=== PATIENT | female | born 1965 | race Caucasian/White ===

== ENCOUNTER → 2017-11-05 | Outpatient (CLI) | payer MEDICARE, MEDICAID ==
[~2017-11-05] MED LIST: ACETAMINOPHEN-1 EAC1 PO; AVELOX 400 MG400 MG PO; DIABETA; EFFEXOR XR75 MG PO; GLUCOPHAGE XR500 MG PO; GLYBURIDE 2.52.5 MG PO; HUMALOG100 UNIT/1 SUBQ; HYDROCHLOROTH12.5 MG; IBUPROFEN 800800 M1 PO; LANTUS IM; LASIX 20 MG TAB20 MG PO; LIORESAL 10 MG10 MG PO; MINOCYCLINE HC100 M2 PO; NAPROSYN500 M1 PO; PENICILLIN VK500 MG PO; SINGULAIR; SINGULAIR 10 MG10 M1 PO; SPIRONOLACTONE25 M1 PO; ZESTRIL5 MG PO; ZOLOFT100 MG
== END ==
LOC: M.ULTRA 13:22
DX: M79.662 Pain in left lower leg (principal); M79.89 Other specified soft tissue disorders

== ENCOUNTER → 2018-12-17 | Outpatient (CLI) | payer MEDICARE, MEDICAID ==
[2018-12-17 12:12] LABS: ABSOLUTE LYMPHOCYTES 0.9 thou/uL (0.8-5.3); ABSOLUTE MONOCYTES 0.3 thou/uL (0.0-1.2); ABSOLUTE NEUTROPHILS 4.4 thou/uL (1.6-8.1); BASOPHILS 0.1 %; HEMATOCRIT 39.3 % (37.0-47.0); HEMOGLOBIN 12.4 gm/dL (12.0-15.0); LYMPHOCYTES 15.9 %; MCH 28.2 pg (26.0-34.0); MCHC 31.6 g/dL (28.0-37.0); MCV 89.3 fL (80.0-100.0); MONOCYTES 5.8 %; MPV 7.8 fl. (7.2-11.1); NUCLEATED RBCS 0 /100WBC; PLATELET COUNT* 190 thou/uL (150-400); POLYS 78.2 %; RDW-CV 14.9 % (10.5-14.5); WBC 5.6 thou/uL (4.0-11.0)
[2018-12-17 12:18] LABS: URINE BILIRUBIN NEGATIVE (Negative); URINE BLOOD NEGATIVE (Negative); URINE CLARITY CLEAR; URINE COLOR YELLOW; URINE GLUCOSE-RANDOM NEGATIVE (Negative); URINE KETONES NEGATIVE (Negative); URINE LEUKOCYTES-REFLEX NEGATIVE (Negative); URINE NITRITE-REFLEX NEGATIVE (Negative); URINE PROTEIN NEGATIVE (Negative); URINE UROBILINOGEN 0.2 E.U./dl (0.2-1.0)
[2018-12-17 12:23] LABS: CALCIUM 8.7 mg/dL (8.5-10.1); CREATININE 1.5 mg/dL (0.6-1.3); MAGNESIUM 1.9 mg/dL (1.8-2.4); PHOSPHORUS* 3.7 mg/dL (2.5-4.9); POTASSIUM 4.3 mmol/L (3.5-5.1)
[2018-12-17 12:44] LABS: CALCIUM 8.4 mg/dL (8.5-10.1); CREATININE 1.5 mg/dL (0.6-1.3); PHOSPHORUS* 3.8 mg/dL (2.5-4.9)
== END ==
LOC: M.ULTRA 11:16
PROVIDERS: Internal Medicine
DX: E11.22 Type 2 diabetes mellitus with diabetic chronic kidney disease (principal); N18.3 Chronic kidney disease, stage 3 (moderate); N17.9 Acute kidney failure, unspecified; J45.909 Unspecified asthma, uncomplicated; Z90.5 Acquired absence of kidney

== ENCOUNTER 2018-12-21 15:05 | Inpatient (IN) | payer MEDICARE, MEDICAID ==
[~2018-12-21] VITALS: Ht 160 cm; Wt 225.4 kg
--- NOTE | ~2018-12-21 | CON ---
[address] [address] CONSULTATION Name: VASQUEZ MAGANA Room: [address] IN .R.#: [id number] Admission: 12/21/18 Attend Phys: Vinicius House Discharge: Date of : 65 Report #: [id number] THIS REPORT FOR: //name// CC: Gary Salas DATE OF SERVICE: 12/22/2018 INFECTIOUS DISEASE CONSULTATION REASON FOR CONSULTATION: I was asked to evaluate concerning respiratory failure and abdominal wall cellulitis. HISTORY OF PRESENT ILLNESS: The patient is a 53-year-old morbidly obese woman with COPD, chronic tracheostomy for obstructive sleep apnea, who presents on 12/21/2018 with a 1-week history of progressive shortness of breath along with 40-pound weight gain. She has a metal tracheostomy and receives oxygen at home. She has had chronic cough with no increased tracheal secretions. Denies any fever, chills or sweats. Has had recurring episodes of abdominal wall cellulitis. She noticed that for last several days, there has been increased pain and warmth involving her abdominal pannus. Denies any fever, chills or sweats. No nausea, vomiting or diarrhea. There has been no chest pain. She has had no palpitations. Main complaint now is difficulty catching her breath. She has improved after being on high flow oxygen here in the Intensive Care Unit. The patient is morbidly obese and she has had difficulty trying to lose weight. No overall change in diet or fluids. She is a diabetic and she has been taking her insulin. She has been on diuretics in the past. REVIEW OF SYSTEMS: Full 10-point review of systems was negative other than what is described above. PAST MEDICAL HISTORY: Tracheostomy for obstructive sleep apnea, narcolepsy in the distant past. Diabetes, asthma, COPD, left nephrectomy, section, partial hysterectomy with right oophorectomy, morbid obesity, recurrent abdominal wall cellulitis and venous stasis disease of her lower abdominal pannus. ALLERGIES: None known. MEDICATIONS: As noted on her AUG, having been started on Zosyn, vancomycin, ceftriaxone, levofloxacin, Zyvox. FAMILY HISTORY: [place] [address] CONSULTATION Name: VASQUEZ MAGANA Room: [address]#: [id number] Admission: 12/21/18 Attend Phys: Vinicius House Discharge: Date of : 65 Report #: [id number] SOCIAL HISTORY: Nonsmoker. No significant alcohol intake. She lives with her daughter and grandchildren. No one has had recent respiratory tract infection symptoms. PHYSICAL EXAMINATION: VITAL SIGNS: She is afebrile and hemodynamically stable. GENERAL: She was alert and cooperative, on high flow oxygen, trach collar. HEENT: Eyes, without scleral icterus. Mouth without mucositis. NECK: Supple with tracheostomy. No surrounding erythema or drainage. LUNGS: Decreased breath sounds bilaterally with no consolidation. HEART: Regular without appreciable murmur, gallop or rub. ABDOMEN: Tender to her abdominal pannus. No appreciable masses identified. She was morbidly obese, large abdominal pannus. She had venous stasis disease involving her abdominal pannus. There was cellulitis, mostly on the lower left abdominal pannus. Moderate tenderness to this region. She has small eschar to the upper mid right abdomen. No palpable adenopathy. GENITAL AND RECTAL: Not performed. EXTREMITIES: Without clubbing, cyanosis or edema. Cranial nerves intact. Strength in upper and lower extremities seemed normal. Sensation in upper and lower extremities is normal. PSYCHIATRIC: Mood was normal. LABORATORY AND DIAGNOSTIC DATA: Ultrasound of the lower extremities negative for DVT. Sodium 140, potassium 4.2, bicarb 34, creatinine 1.6. Troponin 0. Lactate 0.9. Liver function tests normal. Blood glucose in the 200-300 range. Hemoglobin 12.6, white count 5.8, platelet count 196,000. Differential unremarkable. Chest x-ray with cardiomegaly and perihilar opacities most consistent with congestive changes. Blood cultures are negative. Urinalysis done on 12/17/2018 was negative. IMPRESSION: A 53-year-old morbidly obese woman with obstructive sleep apnea, chronic obstructive pulmonary disease and asthma, presents with: 1. Respiratory failure, combination of exacerbation of chronic obstructive pulmonary disease and congestive heart failure. 2. Abdominal wall cellulitis and venous stasis disease. 3. Chronic obstructive pulmonary disease. 4. Morbid obesity. 5. Obstructive sleep apnea. 6. Congestive heart failure. 7. Solitary kidney. 8. Diabetes. RECOMMENDATION: We will continue IV antibiotic therapy with azithromycin and [address] [place] [address] CONSULTATION Name: VASQUEZ MAGANA Room: [address] IN M.R.#: [id number] Admission: 12/21/18 Attend Phys: Vinicius House Discharge: Date of : 65 Report #: [id number] ceftriaxone. Culture blood and sputum. Continue with diuresis, pulmonary support and ICU care. Would again encourage weight loss and diet. By: 1622 [id number] Talbert MD /nt
[2018-12-21 15:12] VITALS: BP 138/55
[2018-12-21] MEDS ORDERED: OSTERA TABLET1 EAC1 PO (15:21)
[2018-12-21 15:32] LABS: ABSOLUTE LYMPHOCYTES 0.9 thou/uL (0.8-5.3); ABSOLUTE MONOCYTES 0.4 thou/uL (0.0-1.2); ABSOLUTE NEUTROPHILS 4.5 thou/uL (1.6-8.1); BASOPHILS 0.3 %; HEMATOCRIT 39.8 % (37.0-47.0); HEMOGLOBIN 12.6 gm/dL (12.0-15.0); LYMPHOCYTES 16.3 %; MCH 27.7 pg (26.0-34.0); MCHC 31.5 g/dL (28.0-37.0); MCV 87.9 fL (80.0-100.0); MONOCYTES 6.6 %; NUCLEATED RBCS 0 /100WBC; PLATELET COUNT* 196 thou/uL (150-400); POLYS 76.8 %; RBC 4.53 mil/uL (4.20-5.00); RDW-CV 15.4 % (10.5-14.5); WBC 5.8 thou/uL (4.0-11.0)
[2018-12-21 15:42] LABS: ANION GAP 5 mmol/L (7-16); BUN 20 mg/dL (7-18); CALCIUM 8.4 mg/dL (8.5-10.1); CHLORIDE 102 mmol/L (98-107); CO2 34 mmol/L (21-32); CREATININE 1.6 mg/dL (0.6-1.3); GLUCOSE 224 mg/dL (70-99); POTASSIUM 3.8 mmol/L (3.5-5.1); SODIUM 141 mmol/L (136-145)
[2018-12-21 15:43] LABS: APTT 27.5 Seconds (25.0-31.3); INR 1.1; PROTIME 11.3 Seconds (9.20-11.50)
[2018-12-21 15:49] LABS: PCO2 47.1 mmHg (35.0-45.0); PO2 60.4 mmHg (75.0-100.0); pH 7.413 (7.340-7.450)
[2018-12-21 15:53] LABS: ALKALINE PHOSPHATASE 81 U/L (46-116); NT-PRO BRAIN NAT PEPTIDE 2017 pg/mL (<300); SGOT 18 U/L (15-37); SGPT 20 U/L (30-65); TOTAL BILIRUBIN 0.6 mg/dL (<0.1-1.0); TOTAL PROTEIN 7.7 g/dL (6.4-8.2); TROPONIN-I LEVEL <0.06 ng/mL (<0.06)
--- NOTE | 2018-12-21 17:37 | NUR ---
PT WAS GIVEN DINNER TRAY
--- NOTE | 2018-12-21 19:02 | NUR ---
PUREWICK CATHETER WAS PLACED AT 1800
--- NOTE | 2018-12-21 19:33 | NUR ---
LI CATHETER PLACED AT [address] ACHARYA VERBAL ORDER
--- NOTE | 2018-12-21 20:45 | NUR ---
PT TRANSERING TO ICU BED 3
[2018-12-21 21:06] VITALS: BP 135/60
[2018-12-21 21:07] VITALS: BP 132/64
[2018-12-22] VITALS (19 sets, daily range): BP systolic 99–132; BP diastolic 41–65
--- NOTE | 2018-12-22 01:26 | NUR ---
FULL CODE STATUS ON ER ORDER, PATIENT REPORTS SHE IS DNR. PROVIDER INFORMED ABOUT THIS VIA YOUCALLMD. NO ORDERS RECEIVED AT THIS TIME. HOUSESUP INFORMED THAT PATIENT IS DNR BUT HAS A FULL CODE STATUS. STATES UNTIL WE GET A PHYSICIAN'S ORDER, WE WILL RESPECT PATIENT'S WISHES.
--- NOTE | 2018-12-22 06:04 | NUR ---
PATIENT DESATTING THROUGH THE NIGHT. WENT FROM BEING ON 10L TRACH SHIELD TO 55.0 L HIGHFLOW WITH 100% FIO2 AT THIS TIME. SPO2 STAYING BETWEEN 86-92%, HIGHEST AT 95% BRIEFLY. COUGHS FREQUENTLY, MINIMAL AMOUNT OF THICK, WHITE MUCUS SUCTIONED. THICK, BROWN MUCUS PLUG FROM TRACH THIS MORNING. SINUS BRADYCARDIC ON THE MONITOR, VITALS STABLE OTHERWISE. PATIENT DENIES PAIN. REQUESTS NOT TO BE TURNED USING THE BED, REPORTS SHE CAN TURN HERSELF. 600CC UOP VIA CATHETER. CALL LIGHT WITHIN REACH.
[2018-12-22 11:32] LABS: CALCIUM 8.1 mg/dL (8.5-10.1); CREATININE 1.6 mg/dL (0.6-1.3); MAGNESIUM 2.2 mg/dL (1.8-2.4); POTASSIUM 4.2 mmol/L (3.5-5.1)
--- NOTE | 2018-12-22 18:50 | NUR ---
I ASSUMED CARE OF THE PATIENT AT 0700. SHE IS ALERT AND ORIENTED X4 AND IS UP WITH ASSISTANCE. SHE IS IN A BARIATRIC BED. IT IS IN THE LOW LOCKED POSITION AND CALL LIGHT IS IN REACH. SHE IS ON A HEPARIN DRIP. HOURLY ROUNDING IS COMPLETED AND PATIENT NEEDS ARE MET. PAIN IS DENIED. ACCU CHECKS ARE COMPLETED AND INSULIN HAS BEEN GIVEN. LI IS IN PLACE. PATIENT HAD A COMPLETED BATH TODAY WITH ASSISTANCE. SHE WAS SEEN BY HIMS, PULMONOLOGY, CARDIOLOGY WAS CONSULTED, AND ID WAS HERE. FAMILY IS AT THE BEDSIDE. PATIENT SEEMS TO NOW AGREE TO HAVE HER TRACH REPLACED IF NEEDED AND WOULD REQUEST THAT IT BE DONE AFTER THIS ADMISSION IS COMPLETE A SCHEDULED PROCEDURE. SHE UNDERSTANDS THAT WE DO NOT HAVE ENT ON STAFF. D.DIMER WAS ELEVATED, PULMONOLOGY WAS CONTACTED AND NEW ORDERS WERE RECEIVED. RT IS WORKING ON TITRATING HER FI02. SHE IS PROGRESSING TOWARD HER GOALS. WILL CONTINUE TO MONITOR.
[2018-12-23] VITALS (24 sets, daily range): BP systolic 103–147; BP diastolic 34–68
--- NOTE | 2018-12-23 04:47 | NUR ---
PT. PROGRESSING TOWARDS GOALS. HAS REMAINED ALERT AND ORIENTED, NO C/O PAIN. SINUS BRADYCARDIA. LINENS CHANGED. PT. PUT ON BEDPAN THIS SHIFT, NO BM. PT. IS ABLE TO HELP ASSIST WITH TURNS AND ABLE TO SHIFT OWN WEIGHT. BP'S WITHIN NORMAL LIMITS. HEPARIN GTT REMAINS INFUSING, PTT TO BE DRAWN AT 0530. PTT. 30.4 AT 2100 CHECK, BOLUS GIVEN AND GTT INCREASED PER HEPARIN PROTOCOL. TRACH SHIELD REMAINS IN PLACE WITH 100% FIO2 AND 50L. CALL LIGHT REMAINS IN PLACE, WILL CONTINUE TO MONITOR.
[2018-12-23 05:34] LABS: HEMATOCRIT 39.9 % (37.0-47.0); HEMOGLOBIN 12.8 gm/dL (12.0-15.0); MCH 27.8 pg (26.0-34.0); MCHC 31.9 g/dL (28.0-37.0); MCV 87.2 fL (80.0-100.0); MPV 9.7 fl. (7.2-11.1); NUCLEATED RBCS 0 /100WBC; PLATELET COUNT* 192 thou/uL (150-400); RBC 4.58 mil/uL (4.20-5.00); RDW-CV 15.6 % (10.5-14.5); WBC 10.1 thou/uL (4.0-11.0)
[2018-12-23 05:51] LABS: ALBUMIN 2.8 g/dL (3.4-5.0); CALCIUM 8.7 mg/dL (8.5-10.1); CREATININE 1.7 mg/dL (0.6-1.3); MAGNESIUM 2.2 mg/dL (1.8-2.4); PHOSPHORUS* 4.9 mg/dL (2.5-4.9); POTASSIUM 3.9 mmol/L (3.5-5.1); TOTAL BILIRUBIN 0.5 mg/dL (<0.1-1.0); TOTAL PROTEIN 7.3 g/dL (6.4-8.2)
[2018-12-23 07:20] LABS: ABSOLUTE LYMPHOCYTES 0.7 thou/uL (0.8-5.3); ABSOLUTE MONOCYTES 0.1 thou/uL (0.0-1.2); ABSOLUTE NEUTROPHILS 9.3 thou/uL (1.6-8.1); PLATELET ESTIMATE ADEQUATE
--- NOTE | 2018-12-23 08:21 | CON ---
[facility] [address] [place] [address] CONSULTATION Name: VASQUEZ MAGANA Room: [address] IN M.R.#: [id number] Admission: 12/21/18 Attend Phys: Vinicius House Discharge: Date of : 65 Report #: [id number] THIS REPORT FOR: //name// CC: Gary Salas DATE OF SERVICE: 12/22/2018 REQUESTING PHYSICIAN: Consult has been requested by Dr. Salas. INDICATION FOR CONSULTATION: Acute on chronic hypoxemic/hypercarbic respiratory failure. HISTORY OF PRESENT ILLNESS: This is a 53-year-old female with past medical history that includes a history of extreme obesity. Her body mass index is elevated to 89. The patient does have a tracheostomy in place, long-term. This does not have a cuff. The patient reports that she uses 4 liters oxygen by a trach shield at night and keeps her tracheostomy uncovered during the day. The patient has now presented with a history of increasing shortness of breath. The patient says this has been there for less than a week. In fact, she has only felt it more significantly for the last couple of days. The patient does report a cough. She says at times she brought up small amounts of blood. Her sputum, however, has been clear. She does not have chest pain. She does not have upper respiratory complaints. She does have mild swelling of lower extremities, which has not changed recently. There is no pain in her calf. There is erythema of her lower abdomen present. The patient says that she has had cellulitis in this region in the past as well. The patient is requiring an incredibly high amount of oxygen. In addition to her heated high flow at 60 liters, she is being administered 15 liters via a supplemental device. In fact, she is receiving 85 liters of flow which is an extremely high flow rate. The patient still is wide awake. I am told that she was sitting up and eating breakfast with this incredibly high amount of oxygen in place. The patient answers to the negative for 12 questions for review of systems except as mentioned above. Her ability to answer questions, however, is limited due her to having a tracheostomy and being on high FiO2. PAST MEDICAL HISTORY: Extreme obesity, body mass index elevated to 89, obstructive sleep apnea. She has a tracheostomy long-term with oxygen while asleep long-term. She has not been on oxygen during the daytime. There is mention of narcolepsy on the chart; however, I am not certain if she in fact has narcolepsy because some of the symptoms of obstructive sleep apnea can resemble narcolepsy as well. She has a history of MRSA colonization with MRSA infection in 2008. Bronchial asthma is mentioned on the record; however, the patient is not certain if she actually has asthma. Diabetes, on a large amount of insulin. Partial hysterectomy, right oophorectomy, in the [place] [address] CONSULTATION Name: VASQUEZ MAGANA Room: [address] IN [facility].#: [id number] Admission: 12/21/18 Attend Phys: Vinicius House Discharge: Date of : 65 Report #: [id number] nephrectomy as well. The patient's baseline creatinine is in fact elevated to around 1.5 in 2017, but was also 1.2 back then, so I am not aware of her baseline creatinine. The patient's last available echocardiogram shows a left ventricular ejection fraction of 55% to 60% without elevation in right heart pressures. This may, however, have been limited study due to her body habitus. SOCIAL HISTORY: Lifetime nonsmoker. No known history of ethanol abuse or drug abuse. CURRENT MEDICATIONS: List in [place], reviewed. HOME MEDICATIONS: List in [place], reviewed. FAMILY HISTORY: Diabetes. PHYSICAL EXAMINATION: GENERAL: She is remarkably comfortable for the amount of oxygen she is on. The patient is on incredible 85 liters total with 100% FiO2 partially being administered using a heated high flow device and partially being administered by supplemental device at 15 liters. The heated high flow device was at 60 liters. VITAL SIGNS: She has a pulse of around 50 and blood pressure of 129/60. She is saturating 93% to 95%. She is mostly around 93. She is afebrile with a temperature of 36.9. She does have a body mass index of 89. HEENT: Head is normocephalic, atraumatic. Pupils are equal and reactive. She has a small mouth opening and Mallampati 4 airway. There is a trach in place, cuffless. NECK: Does not show raised JVP, asymmetry, mass or lymph nodes. CHEST: Symmetrical expansion on inspection and palpation. On auscultation, breath sounds are bilaterally equal, but decreased. I do not hear any added sounds. HEART: Regular with no murmurs. Bradycardia is noted. ABDOMEN: Soft. There is erythema of the lower part of the skin of the abdomen. EXTREMITIES: Lower extremities show trace edema only. Skin is dry and intact. There is no calf tenderness. NEUROLOGICAL: Moves all extremities bilaterally equally and spontaneously with no focal deficit identified. LABORATORY DATA: The patient's chest x-ray is reviewed and compared with the patient's previous chest x-rays. There are vague radiopaque densities bilaterally noted. I feel there is a significant component of these chronic changes, it is possible that there are some infiltrates present. There may be mild increase in pulmonary vascular congestion as well; however, I do not see any marked increase in pulmonary vascular congestion or large infiltrates. The patient's CBC as well as chemistries, coagulation studies are in [facility] [place] [address] CONSULTATION Name: VASQUEZ MAGANA Room: [address] IN [facility].#: [id number] Admission: 12/21/18 Attend Phys: Vinicius House Discharge: Date of : 65 Report #: [id number] ASSESSMENT AND PLAN: 1. [id number] hypoxemic/hypercarbic respiratory failure. The patient currently is comfortable, but she is on an incredible amount of oxygen at around 80 liters, out of which 60 liters are used with a heated high flow device. I certainly would have preferred a cuff trach; however, at this time changing her tracheostomy out will have significant risks. Also, I considered as to whether we should transfer her to a facility with ENT coverage; however, there will be considerable risks in transport as well. Therefore, I decided to hold off. In case the patient desaturates further; however, there may be no choice but to switch her tracheostomy over to a cuffed trach and then connect her to a BiPAP or ventilator. I discussed this with the patient. She had previously stated that she may not want such measures, but she is now telling me that she would. Note that she is considerably hypoxemic. While there may be some mild increase in pulmonary vascular congestion and some infiltrates on the patient's chest x-ray, I feel that this is significantly out of proportion and therefore the possibility of thromboembolism does need to be considered. 2. Obstructive sleep apnea with obesity hypoventilation syndrome. See discussion as above. This is underlying etiology of her respiratory failure. 3. Pulmonary infiltrates. I would cover her very broadly at this time. She does have elevation in creatinine. She also does have only one kidney and she has a history of MRSA colonization. Therefore, for now, I decided to discontinue her vancomycin. We will also hold her venlafaxine and order Zyvox. I also broadened the antibiotic coverage by switching ceftriaxone to Zosyn and ordered Levaquin, but as discussed above, it is possible that the patient's hypoxemia is not due to infiltrates. I will go ahead and request Infectious Disease to see the patient. 4. Bronchial asthma. Agree with Solu-Medrol. I suggest considering an insulin drip. Considering that glucoses are already markedly elevated, I made her antibiotic regimen more aggressive. 5. Renal insufficiency/evaluation for thromboembolic phenomena. The patient is significantly hypoxemic. However, this hypoxemia is more than I would expect based on chest x-rays. Therefore, I ordered stat venous Dopplers. I also ordered a D-dimer. Unless D-dimer is fairly low, my intention is to go ahead and start IV heparin pending further evaluation. An echo to evaluate right heart pressure is also ordered. 6. Renal insufficiency/history of nephrectomy. I do agree with keeping her on the skin drier side considering that she is on an incredible amount of oxygen. I do not, however, feel that she has a significant amount of fluid overload on my exam. The patient is critically ill at this time. [address] [address] CONSULTATION Name: VASQUEZ MAGANA Room: [address] IN ..#: [id number] Admission: 12/21/18 Attend Phys: Vinicius House Discharge: Date of : 65 Report #: [id number] Total time spent providing critical care to this patient today is 45 minutes. <ELECTRONICALLY SIGNED> By: Ethan Ignacio MD 12/23/18 0821 1223 [id number] Crow MD /nt
[2018-12-23 09:16] LABS: BE 6.9 mmol/L (-2 to +3); PCO2 47.6 mmHg (35.0-45.0); PO2 67.5 mmHg (75.0-100.0); pH 7.446 (7.340-7.450)
--- NOTE | 2018-12-23 11:02 | NUR ---
ICU rounds and initial assessment: Pt sleeping and pt nurse preference for pt not to disturb pt sleep at this time. Pt lives at home with pt family and pt expressed to nurse that pt is anxious to go home. Pt has hx of trach and pt cared for trach confidently. CM to continue to follow to assist with safe dc planning.
--- NOTE | 2018-12-23 12:30 | EKG ---
[place] [address] ELECTROCARDIOGRAM REPORT Name: VASQUEZ MAGANA Room: [address] ADM IN .R.#: [id number] Admission: 12/21/18 Attend Phys: Vinicius House Discharge: Date of : 65 Report #: [id number] THIS REPORT FOR: //name// [facility] ED Test Date: 2018-12-21 Test Time: 15:28:31 Pat Name: VASQUEZ MAGANA Department: Room: [facility] Gender: F Rn House Supervisor: : 1965 Requested By: Jj Martinez Order Number: [id number] MD: Gary Jiménez Measurements Intervals [place] Rate: 63 P: 4 NE: 162 QRS: 15 QRSD: 97 T: 51 QT: 443 QTc: 454 Interpretive Statements Sinus rhythm Low voltage, precordial leads Compared to ECG 01/25/2017 13:07:01 No significant changes Electronically Signed On 12-23-2018 12:30:20 CDT by Gary Jiménez [email or web address] <ELECTRONICALLY SIGNED> By: Gary Jiménez MD, [facility] 12/23/18 1230 1528 1528 Gary Jiménez MD, [facility] /EPI
--- NOTE | 2018-12-23 13:28 | 2DMMODE ---
[place] [address] 2 D/M-MODE ECHOCARDIOGRAM Name: VASQUEZ MAGANA Room: [address] IN [facility]#: [id number] Admission: 12/21/18 Attend Phys: Tony Salas Discharge: Date of : 65 Date of Service: 12/23/18 1327 Report #: [id number] THIS REPORT FOR: //name// APPROVED REPORT Study performed: 12/23/2018 09:30:02 EXAM: Comprehensive 2D, Doppler, and color-flow Echocardiogram Patient Location: In-Patient Room #: 003 Status: routine BSA: 2.85 HR: 53 bpm BP: 125/55 mmHg Rhythm: NSR Other Information Study Quality: Fair Technically limited study due to body habitus, poor endocardial definition, inability to position patient. Indications Dyspnea Echo Enhancing Agent Indication: Endocardial border delineation Agent(s) / Amount(s) Used: Optison 4 cc 2D Dimensions IVSd: 15.61 (7-11mm) LVOT Diam: 22.05 (18-24mm) LVDd: 54.28 mm PWd: 13.08 (7-11mm) Ascending Ao: 30.16 (22-36mm) LVDs: 36.66 (25-40mm) Aortic Root: 32.87 mm Volumes Left Atrial Volume (Systole) LA ESV Index: 28.60 mL/m2 Aortic Valve AoV Peak Hilario.: 1.61 m/s AO Peak Gr.: 10.41 mmHg LVOT Max P.30 mmHg AO Mean Gr.: 6.06 mmHg LVOT Mean P.70 mmHg LVOT Max V: 1.26 m/s AO V2 VTI: 38.95 cm LVOT Mean V: 0.73 m/[place] [address] 2 D/M-MODE ECHOCARDIOGRAM Name: VASQUEZ MAGANA Room: [address]#: [id number] Admission: 12/21/18 Attend Phys: Tony Salas Discharge: Date of : 65 Date of Service: 12/23/18 1327 Report #: [id number] JOHN (VTI): 3.05 cm2 LVOT V1 VTI: 31.06 cm Mitral Valve E/A Ratio: 1.65 MV Decel. Time: 207.19 ms MV E Max Hilario.: 1.08 m/s MV PHT: 60.09 ms MVA (PHT): 3.66 cm2 Pulmonary Valve PV Peak Hilario.: 1.22 m/s PV Peak Gr.: 5.98 mmHg Left Ventricle The left ventricle is normal size. Mild concentric left ventricular hypertrophy. Left ventricular systolic function is normal. The left ventricular ejection fraction is within the normal range. LVEF is 55-60%. The left ventricular diastolic function is normal. Right Ventricle The right ventricle is normal size. The right ventricular systolic function is normal. Atria The left atrium size is normal. The right atrium size is normal. Aortic Valve The aortic valve is normal in structure. No aortic regurgitation is present. There is no aortic valvular stenosis. Mitral Valve The mitral valve is normal in structure. There is no mitral valve regurgitation noted. No evidence of mitral valve stenosis. Tricuspid Valve The tricuspid valve is normal in structure. There is no tricuspid valve regurgitation noted. Pulmonic Valve Pulmonic valve is not well visualized. There is no pulmonic valvular regurgitation. Great Vessels The aortic root is normal in size. IVC is normal in size and collapses >50% [place] [address] 2 D/M-MODE ECHOCARDIOGRAM Name: VASQUEZ MAGANA Room: [address] IN [facility]#: [id number] Admission: 12/21/18 Attend Phys: Tony Salas Discharge: Date of : 65 Date of Service: 12/23/18 1327 Report #: [id number] Pericardium There is no pericardial effusion. <Conclusion> Mild concentric left ventricular hypertrophy. LVEF is 55-60%. <ELECTRONICALLY SIGNED> By: Gary Jiménez MD, FACC 12/23/18 1327 26 Gary Jiménez MD, [facility] /INF
[2018-12-24] VITALS (7 sets, daily range): BP systolic 96–145; BP diastolic 42–66
[2018-12-24 04:35] LABS: CALCIUM 8.6 mg/dL (8.5-10.1); CREATININE 1.6 mg/dL (0.6-1.3); POTASSIUM 4.1 mmol/L (3.5-5.1)
--- NOTE | 2018-12-24 05:35 | NUR ---
ASSUMED CARE AT 1910H, WITH TAIL RIPPER TRACHEOSTOMY CONNECTED TO OPTI FLOW AT 50LPM.NO DISTRESS NOTED. 02 SAT OCCASSIONALY DOWN TO 89% WHEN SHE WAS HAVING SLEEP APNEA.DEEP BREATHING EXERCISE ALWAYS ENCOURAGE.CONTINUE MONITONG AND TOWARDS GOAL.
--- NOTE | 2018-12-24 06:50 | NUR ---
PT SAID THAT THERE SOMETHING OBSTRACTING HER TRACH AND BECAME RESTLESS AND COUGHING EXCESSIVELY.02 SAT 85%.SUCTION DONE BY RT AND TRACHEOSTOMY CARE DONE.LATEST 02 SAT 96%.
[2018-12-24] MEDS ORDERED: PREDNISONE 10 M10 MG PO (11:13)
[2018-12-24] MEDS ORDERED: AUGMENTIN 875-1 EACH PO (11:13)
[2018-12-24] MEDS ORDERED: LASIX 40 MG TAB40 M2 PO (11:13)
--- NOTE | 2018-12-24 12:19 | NUR ---
PT INSISTING ON GOING HOME TODAY. PER DISCUSSION WITH PT YESTERDAY, SHE CURRENTLY HAS O2 AT HOME FROM [facility], SHE HAS A 5L CONCENTRATOR BUT SHE WILL NEED A 10 L CONCENTRATOR. CALLED [facility] ([phone]), FAXED TO THEM ([phone]) PHYSICIAN ORDER FOR O2 AT 8-10 LITERS, O2 SATS FROM THIS MORNING, AND PROGRESS NOTE. ASKED THEM TO DELIVER ENOUGH PORTABLE TANKS TO THE HOSPITAL TO LAST HER UNTIL THEY CAN GET THE CONCENTRATOR DELIVERED TO THE HOME. NURSING UPDATED. DAUGHTER IS HERE AND AWARE THE PT IS INSISTING ON GOING HOME, SHE WILL TRASNPORT.
--- NOTE | 2018-12-24 13:28 | NUR ---
Nutrition: Pt admitted with abd cellulitis. Assessed for high BMI. Wt 497#. 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 Per [facility], pt has gained 50# gradually over 2 yrs. +BM yday. BUN 44, cr 1.6, alb 2.8, prealb 21.4, BG 345 to 78. RX: insulin, glyburide. CHO controlled diet. Pt wants to go home. No nutrition interventions needed at this time. BMI skewing nutrition risk. Consider mild risk.
--- NOTE | 2018-12-24 14:18 | NUR ---
PATIENT WANTED TO LEAVE AGAINST MEDICAL ADVICE, DR DOWD DID PRESCRIBE 3 MEDICATIONS BUT EDUCATED HER THAT HE DIDN'T AGREE WITH HER GOING HOME DUE TO HIGH OXYGEN REQUIREMENTS. PATIENT DID QUALIFY FOR 10 LITERS O2 AT HOME, [facility] BROUGHT TANKS AND WILL FOLLOW PATIENT HOME WITH CONCENTRATOR. EDUCATED ON INSTRUCTIONS TO COME BACK TO ER IF SHORTNESS OF AIR BECOMES WORSE. PATIENT SIGNED AMA, PRESCRIPTS GIVEN. PATIENT TRANSFERED BY WHEELCHIAR TO CAR WITH DAUGHTER. IVS TAKEN OUT AND JEN MARIE
--- NOTE | 2018-12-25 16:54 | CON ---
[address] [address] CONSULTATION Name: VASQUEZ MAGANA Room: [address] M.R.#: [id number] Admission: 12/21/18 Attend Phys: Vinicius House Discharge: 12/24/18 Date of : 65 Report #: [id number] THIS REPORT FOR: //name// CC: RAMANDEEP Salas DATE OF SERVICE: 12/23/2018 CARDIOLOGY CONSULTATION HISTORY OF PRESENT ILLNESS: The patient is a 53-year-old single white female who I was asked to see in the hospital today after she complained of being short of breath. The patient has an extensive past medical history. She is morbidly obese, standing 5 feet 3 inches and weighing up to 500 pounds. She has a history of chronic edema and chronic kidney disease. Recently, her aws consultant stopped her diuretics because of worsening renal function. However, she developed fluid retention and increased weight and was placed backed on diuretics. She does ambulate with a cane. She has a tracheostomy 20 years ago at [facility]. She has a history of sleep apnea and narcolepsy. She uses nebulizers at home and is on oxygen. She has been having progressive shortness of breath for the past several days. She was brought to [place] 2 days ago by her daughter because of shortness of breath and was hospitalized. Cardiology consultation was requested. She denies any history of myocardial infarction or chest pain. She denies history of palpitations or syncope. PAST MEDICAL AND SURGICAL HISTORY: She has had previous tonsillectomy. 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 She has had and hysterectomy. She has diabetes. MEDICATIONS AT HOME: Consists of the following: She is on baclofen, glyburide, insulin, Singulair and Effexor. ALLERGIES: She has no known drug allergies. FAMILY HISTORY: Negative for heart disease. SOCIAL HISTORY: She is from her . No smoking or alcohol abuse. Lives with daughter. Ambulates with a cane. REVIEW OF SYSTEMS: She has had no history of stroke, peptic ulcer disease or cancer. She saw a psychiatrist in the past. No chronic skin condition. PHYSICAL EXAMINATION: GENERAL: Revealed a large middle-aged female lying in bed. She has a [place] [address] CONSULTATION Name: VASQUEZ MAGANA Room: [address]#: [id number] Admission: 12/21/18 Attend Phys: Vinicius House Discharge: 12/24/18 Date of : 65 Report #: [id number] VITAL SIGNS: She had a blood pressure of 120/60, pulse is 60. She is afebrile. HEENT: She was anicteric, conjunctivae pink. Mucous membranes are moist. NECK: Veins are difficult to assess due to obesity. CHEST: Clear to auscultation. CARDIOVASCULAR: Regular rate and rhythm. ABDOMEN: Very large, protuberant abdominal apron, it was soft. EXTREMITIES: Had trace edema. Dorsalis pedis pulse 2+ bilaterally. SKIN: Cool and dry. NEUROLOGIC: Nonfocal. LABORATORY DATA: Her ECG on admission showed a sinus rhythm, no ST- or T-wave changes. Her workup so far, she had an echocardiogram in 2016 that showed technically difficult study, but it appeared to show left ventricular hypertrophy, normal left ventricular function. Her workup so far, she had a portable chest x-ray on admission 2 days ago that showed cardiomegaly, vascular congestion. Venous duplex scan yesterday showed no evidence of DVT. Her lab work, sodium 140; BUN 33; creatinine 1.7, it was 1.4 in 2010; glucose 179. Liver function studies were normal. Albumin 2.8. Troponin 0.06. BNP ____. White blood cell count 10.1, hemoglobin 12.8. IMPRESSION RECOMMENDATIONS: 1. Edema. Suspect venous insufficiency. 2. Acute on chronic diastolic heart failure. Recommend echocardiogram. 3. Chronic kidney disease. 4. Diabetes. 5. Morbid obesity. 6. Sleep apnea. The patient has a tracheostomy in place. 7. Protein malnutrition. <ELECTRONICALLY SIGNED> By: Ramandeep Jiménez MD, [facility] 12/25/18 [id number] Jiménez MD, FACC /nt
== END 2018-12-24 14:15 | disposition left against medical advice (07) | DRG 177 ==
LOC: M.ERS 15:05 → M.TBA-ER 16:29 → M.ICU 16:29
PROVIDERS: Family Medicine; Internal Medicine Cardiovascular Disease; Internal Medicine Critical Care Medicine; ADMIT Internal Medicine
DX: J15.6 Pneumonia due to other Gram-negative bacteria (principal); J96.22 Acute and chronic respiratory failure with hypercapnia; J96.21 Acute and chronic respiratory failure with hypoxia; I50.33 Acute on chronic diastolic (congestive) heart failure; L03.311 Cellulitis of abdominal wall; E66.2 Morbid (severe) obesity with alveolar hypoventilation; J44.1 Chronic obstructive pulmonary disease with (acute) exacerbation; E44.0 Moderate protein-calorie malnutrition; Z68.45 Body mass index [BMI] 70 or greater, adult; Q60.0 Renal agenesis, unilateral; N18.3 Chronic kidney disease, stage 3 (moderate); E11.22 Type 2 diabetes mellitus with diabetic chronic kidney disease; Z90.5 Acquired absence of kidney; Z86.14 Personal history of Methicillin resistant Staphylococcus aureus infection; Z98.891 History of uterine scar from previous surgery; Z90.711 Acquired absence of uterus with remaining cervical stump; Z79.4 Long term (current) use of insulin; Z79.899 Other long term (current) drug therapy; Z93.0 Tracheostomy status; Z90.721 Acquired absence of ovaries, unilateral

== ENCOUNTER → 2019-02-04 | Outpatient (CLI) | payer MEDICARE, MEDICAID ==
[~2019-02-04] MED LIST changes: +AUGMENTIN 875-1 EACH PO; +LASIX 40 MG TAB40 M2 PO; +OSTERA TABLET1 EAC1 PO; +PREDNISONE 10 M10 MG PO
--- NOTE | 2019-02-04 17:33 | EXE ---
[place] [address] STRESS ECHOCARDIOGRAM Name: VASQUEZ MAGANA Room: [facility]#: [id number] Admission: 02/04/19 Attend Phys: Gabe Vaughn, Discharge: Date of : 65 Date of Service: 02/04/19 1733 Report #: [id number] THIS REPORT FOR: //name// APPROVED REPORT Study performed: 02/04/2019 15:45:23 Exam: Dobutamine Stress Echo Indication: Dyspnea Patient Location: Out-Patient Stress Nurse: Jocelyne Webb RN Supervising Physician: Gabe Vaughn MD Ht: 5 ft 3 in HR: 59 bpm BP: 121/69 mmHg Medical History Cardiac Risk Factors: Hyperlipidemia, HTN, DM, FHX of CAD Procedure The patient underwent a Pharmacological Stress Test using Dobutamine. Blood pressure, heart rate, and EKG were monitored. An Echocardiogram was performed by agricultural engineering technicians in four stages in quad fashion. At peak stress, four selected images were obtained and placed side by side with resting images for comparison. Echo Enhancing Agent Indication: Endocardial border delineation Agent(s) / Amount(s) Used: Optison 3 cc Stress Test Details Stress Test: Pharmacological Stress Test using Dobutamine. Reason for pharmacologic stress test: physical limitation. HR Resting HR: 59 bpm Max Heart Rate (APMHR): 167 bpm Max HR Achieved: 162 bpm Target HR (85% APMHR): 141 bpm % of APMHR: 97 Recovery HR: 77 bpm HR response to stress: Normal HR response to stress BP Resting BP: 121/69 mmHg Max BP: 264/85 [place] [address] STRESS ECHOCARDIOGRAM Name: VASQUEZ MAGANA Room: [facility]#: [id number] Admission: 02/04/19 Attend Phys: Gabe Vaughn, Discharge: Date of : 65 Date of Service: 02/04/19 1733 Report #: [id number] Recovery BP: 100/61 mmHg BP response to stress: Normal blood pressure response to stress. ECG Resting ECG: Sinus Rhythm Stress ECG: Sinus Tachycardia ST Change: None Arrhythmia: VPC's Recovery ECG: Sinus Rhythm Recovery ST Change: None Recovery Arrhythmia: VPC Clinical Reason for Termination: Completed protocol The patient had no significant symptoms to suggest angina. Stress ECG Conclusion The baseline 12-lead EKG shows sinus rhythm with no significant ST or T wave abnormalities. EKGs obtained during and post dobutamine infusion show sinus rhythm and sinus tachycardia with no significant ST or T wave changes when compared to baseline. There were unifocal premature ventricular contractions noted in the stress and recovery phases. Pre-Stress Echo The resting Echocardiogram showed normal left ventricular contractility with an estimated Ejection Fraction of about 55-60%. Post-Stress Echo The stress Echocardiogram showed normal left ventricular contractility with an estimated Ejection Fraction of about >70%. Compared to rest, there were no stress-induced wall motion abnormalities. Normal augmentation of wall motion in all segments on post stress images. Clinical No clinical or ECG evidence for ischemia. Conclusion Clinical Response: Non-ischemic Stress ECG Response: Non-ischemic Stress Echo Images: Non-ischemic There were no EKG, echo or clinical indicators to suggest stress-induced ischemia. Global LV systolic function augmented normally with dobutamine infusion. This [place] [address] STRESS ECHOCARDIOGRAM Name: VASQUEZ MAGANA Room: [facility]#: [id number] Admission: 02/04/19 Attend Phys: Gabe Vaughn, Discharge: Date of : 65 Date of Service: 02/04/191732 Report #: [id number] Other Information Study Quality: Technically Limited Technically limited study due to body habitus. <Conclusion> There were no EKG, echo or clinical indicators to suggest stress-induced ischemia. Global LV systolic function augmented normally with dobutamine infusion. This is a low risk study. <ELECTRONICALLY SIGNED> By: Gabe Vaughn MD, [facility] 02/04/19 [phone] Gabe Vaughn MD, FACC /INF
== END ==
LOC: M.CRD 14:40
DX: R06.09 Other forms of dyspnea (principal); E78.5 Hyperlipidemia, unspecified; I10 Essential (primary) hypertension; E11.9 Type 2 diabetes mellitus without complications

== ENCOUNTER → 2019-02-26 | Outpatient (CLI) | payer MEDICARE, MEDICAID | LOC: M.ULTRA 10:22 | DX: R22.9 Localized swelling, mass and lump, unspecified (principal) ==

== ENCOUNTER → 2019-03-12 | Outpatient (CLI) | payer MEDICARE, MEDICAID | LOC: M.CT 03-04 16:36 | DX: R41.3 Other amnesia (principal); M71.331 Other bursal cyst, right wrist ==

== ENCOUNTER → 2019-03-14 | Outpatient (CLI) | payer MEDICARE, MEDICAID ==
[2019-03-14 09:49] LABS: CALCIUM 9.3 mg/dL (8.5-10.1); CREATININE 1.3 mg/dL (0.6-1.3); POTASSIUM 3.1 mmol/L (3.5-5.1)
== END ==
LOC: M.LAB 08:59
PROVIDERS: Nurse Practitioner
DX: E11.22 Type 2 diabetes mellitus with diabetic chronic kidney disease (principal); N18.3 Chronic kidney disease, stage 3 (moderate)

== ENCOUNTER → 2019-05-13 | Outpatient (CLI) | payer MEDICARE, MEDICAID ==
[2019-05-13 12:47] LABS: ABSOLUTE LYMPHOCYTES 1.2 thou/uL (0.8-5.3); ABSOLUTE MONOCYTES 0.3 thou/uL (0.0-1.2); ABSOLUTE NEUTROPHILS 4.2 thou/uL (1.6-8.1); BASOPHILS 0.3 %; HEMATOCRIT 38.8 % (37.0-47.0); HEMOGLOBIN 12.9 gm/dL (12.0-15.0); LYMPHOCYTES 20.6 %; MCH 28.7 pg (26.0-34.0); MCHC 33.1 g/dL (28.0-37.0); MCV 86.7 fL (80.0-100.0); MONOCYTES 5.9 %; MPV 9.6 fl. (7.2-11.1); NUCLEATED RBCS 0 /100WBC; PLATELET COUNT* 195 thou/uL (150-400); POLYS 73.2 %; RBC 4.47 mil/uL (4.20-5.00); WBC 5.7 thou/uL (4.0-11.0)
[2019-05-13 13:24] LABS: ALBUMIN 3.3 g/dL (3.4-5.0); ALKALINE PHOSPHATASE 72 U/L (46-116); ANION GAP 9 mmol/L (7-16); BUN 16 mg/dL (7-18); CALCIUM 8.6 mg/dL (8.5-10.1); CHLORIDE 101 mmol/L (98-107); CHOLESTEROL 119 mg/dL (<200); CO2 32 mmol/L (21-32); CREATININE 1.3 mg/dL (0.6-1.3); DIRECT BILIRUBIN 0.1 mg/dL (<0.1-0.3); GLUCOSE 112 mg/dL (70-99); HDL CHOLESTEROL 34 mg/dL (>40); LDL CHOLESTEROL 47 mg/dL (<100); NT-PRO BRAIN NAT PEPTIDE 511 pg/mL (<300); POTASSIUM 3.7 mmol/L (3.5-5.1); SGOT 22 U/L (15-37); SGPT 23 U/L (30-65); SODIUM 142 mmol/L (136-145); TC:HDL 3.5 Ratio (Not establshd); TOTAL BILIRUBIN 0.5 mg/dL (<0.1-1.0); TOTAL PROTEIN 7.4 g/dL (6.4-8.2); TRIGLYCERIDE 192 mg/dL (<150); VLDL 38 mg/dL (<40)
[2019-05-13 13:25] LABS: SERUM ASSESSMENT Clear
[2019-05-14 02:07] LABS: GLYCOHEMOGLOBIN (HGB A1C) 7.7 % (4.8-5.6)
== END ==
LOC: M.LAB 12:10
PROVIDERS: Registered Nurse Diabetes Educator
DX: E11.22 Type 2 diabetes mellitus with diabetic chronic kidney disease (principal); I13.0 Hypertensive heart and chronic kidney disease with heart failure and stage 1 through stage 4 chronic kidney disease, or unspecified chronic kidney disease; I50.33 Acute on chronic diastolic (congestive) heart failure; N18.3 Chronic kidney disease, stage 3 (moderate); E11.65 Type 2 diabetes mellitus with hyperglycemia; E55.9 Vitamin D deficiency, unspecified; I10 Essential (primary) hypertension; K80.20 Calculus of gallbladder without cholecystitis without obstruction; Z79.899 Other long term (current) drug therapy; Z79.4 Long term (current) use of insulin